=== PATIENT | female | born 1950 | race Caucasian/White ===

== ENCOUNTER 2019-05-05 15:57 | Inpatient (IN) | payer BC, OTHER ==
[~2019-05-05] VITALS: Ht 162.6 cm; Wt 61.6 kg
[2019-05-05] MEDS ORDERED: HYDROmorphone 1 MG/ML, 1ML INJ ONE ×5 (16:09→20:54)
[2019-05-05] MEDS ORDERED: ONDANSETRON 2MG/ML, 2ML ONE ×2 (16:09→18:44)
[2019-05-05] MEDS: HYDROmorphone 2 MG/ML, 1ML IVPush PRN ×8 (16:15→21:05)
--- NOTE | 2019-05-05 16:15 | NUR ---
PT PLACED ON BP CUFF, PULSE OX. DILAUDID 1MG GIVEN PER ERP ORDER FOR SEVERE, DIFFUSE "TWISTING" ABDOMINAL PAIN RATED 10/10. ZOFRAN PROVIDED WELL FOR NAUSEA. PT LAST ATE LAST NIGHT, "HOT DOG". R/O NORMAL BMS WITH LAST ONE THIS AM. WARM BLANKET AND CALL LIGHT PROVIDED.
[2019-05-05] MEDS ORDERED: PLEASE ENTER ALLERGIES MC SCH (16:30)
[2019-05-05] MEDS ORDERED: SODIUM CHLORIDE FLUSH 10ML SYR IVF ONE (16:30)
[2019-05-05] MEDS ORDERED: ONDANSETRON 2MG/ML, 2ML IVPush ONE (16:30)
[2019-05-05] MEDS ORDERED: PLEASE ENTER HEIGHT AND WEIGHT MC SCH (16:30)
[2019-05-05] MEDS ORDERED: SODIUM CHLORIDE 0.9% 1,000ML IVBOLUS ONE (16:30)
[2019-05-05 16:51] LABS: INTERNATIONAL NORMALIZED RATIO 1.01 (0.93-1.1); PROTHROMBIN TIME 10.7 Seconds (9.6-11.5)
[2019-05-05 16:52] LABS: ALANINE AMINOTRANSFERASE 19 U/L (12-78); ALBUMIN 3.7 g/dL (3.4-5.0); ANION GAP 6 mmol/L (5-15); CALCIUM 9.7 mg/dL (8.5-10.1); CHLORIDE 103 mmol/L (98-107); CREATININE 1.08 mg/dL (0.55-1.02)
[2019-05-05 16:54] LABS: ALKALINE PHOSPHATASE 61 U/L (45-117); BILIRUBIN,TOTAL 1.1 mg/dL (0.2-1.0); TOTAL PROTEIN 6.7 g/dL (6.4-8.2)
[2019-05-05 16:55] LABS: BASOPHILS # (AUTO) 0.01 x10^3/uL (0-0.1); BASOPHILS % (AUTO) 0 % (0-1); EOSINOPHILS # (AUTO) 0.01 x10^3/uL (0-0.4); EOSINOPHILS % (AUTO) 0 % (1-7); LYMPHOCYTES # (AUTO) 0.87 x10^3/uL (1-3.4); LYMPHOCYTES % (AUTO) 18 % (22-44); MD NO; MEAN CORPUSCULAR HEMOGLOBIN 29.7 pg (27.0-34.8); MEAN CORPUSCULAR HGB CONC 32.7 g/dL (32.4-35.8); MEAN CORPUSCULAR VOLUME 90.8 fL (80-100); MEAN PLATELET VOLUME 7.3 fL (7.4-10.4); MONOCYTES # (AUTO) 0.23 x10^3/uL (0.2-0.8); MONOCYTES % (AUTO) 5 % (2-9); NEUTROPHILS # (AUTO) 3.73 x10^3/uL (1.8-6.8); NEUTROPHILS % (AUTO) 77 % (42-75); PLATELET COUNT 288 x10^3/uL (130-400); RED BLOOD COUNT 4.84 x10^6/uL (3.82-5.3); RED CELL DISTRIBUTION WIDTH 15.1 % (9.6-15.2)
--- NOTE | 2019-05-05 16:55 | NUR ---
2ND DOSE OF DILAUDID GIVEN FOR PERSISTENT PAIN, RATED 8/10. VSS/UPDATED IN COMPUTER. CALL LIGHT WITHIN REACH.
--- NOTE | 2019-05-05 17:12 | NUR ---
OXYGEN PLACED AT 2LITERS FOR SAT DIPPING TO 88% ON RA. MANUEL WARMER PLACED. FAMILY AT BS.
[2019-05-05] MEDS ORDERED: OMNIPAQUE 350 MG/ML, 100ML BOTTLE ONE (17:43)
[2019-05-05] MEDS ORDERED: METRONIDAZOLE PMX 500MG/100ML 100 ML IV ONE (18:30)
[2019-05-05] MEDS ORDERED: PIPERACILLIN/TAZO/PMX 3.375GM 50 ML IV ONE (18:30)
[2019-05-05] MEDS ORDERED: PROPOFOL 50 ML ONE (18:37)
--- NOTE | 2019-05-05 18:37 | NUR ---
PT UNDRESSED/PLACED ON GOWN, CLOTHING PLACED IN BELONGING BAG. WHO FORM STARTED. REPORT TO SUSAN IN OR. PT TO BE TAKEN TO OR IMMEDIATELY.
[2019-05-05] MEDS ORDERED: MIDAZOLAM 1 MG/ML, 2ML ONE (18:38)
[2019-05-05] MEDS ORDERED: FENTANYL PF 250 MCG/5ML ONE (18:38)
[2019-05-05] MEDS ORDERED: ROCURONIUM 10MG/ML,5ML ONE (18:41)
[2019-05-05] MEDS ORDERED: SUCCINYLCHOLINE 20 MG/ML, 10ML ONE (18:41)
[2019-05-05] MEDS ORDERED: DEXAMETHASONE 4 MG/ML, 1ML ONE (18:44)
[2019-05-05] MEDS ORDERED: ATOR40TA78 PO (19:00)
[2019-05-05] MEDS ORDERED: LEVO100T5 PO (19:00)
[2019-05-05] MEDS ORDERED: CEFOTETAN PMX 1GM/50ML 50 ML ONE (19:10)
[2019-05-05] MEDS ORDERED: EPHEDRINE 50 MG/ML, 1ML IM PRN (19:30)
[2019-05-05] MEDS ORDERED: MIDAZOLAM 1 MG/ML, 2ML IV PRN (19:30)
[2019-05-05] MEDS ORDERED: MORPHINE SULFATE 4 MG/ML, 1ML IVPush PRN ×3 (19:30→22:30)
[2019-05-05] MEDS ORDERED: OXYcodone 5 MG/5 ML ORAL.SOL UDC PO PRN (19:30)
[2019-05-05] MEDS ORDERED: ONDANSETRON ODT 8 MG PO PRN (19:30)
[2019-05-05] MEDS ORDERED: EPHEDRINE 50 MG/ML, 1ML IVPush PRN (19:30)
[2019-05-05] MEDS ORDERED: PROMETHAZINE 25 MG/ML, 1ML IV PRN (19:30)
[2019-05-05] MEDS ORDERED: DIPHENHYDRAMINE 50 MG/ML, 1ML IVPush PRN ×2 (19:30→22:30)
[2019-05-05] MEDS ORDERED: DIAZEPAM 5 MG/ML, 2ML IVPush PRN (19:30)
[2019-05-05] MEDS ORDERED: ONDANSETRON 2MG/ML, 2ML IV PRN ×2 (19:30→22:30)
[2019-05-05] MEDS ORDERED: FENTANYL PF 100 MCG/2ML ONE (20:17)
[2019-05-05] MEDS: FENTANYL PF 100 MCG/2ML IV PRN ×2 (20:18→20:23)
[2019-05-05] MEDS ORDERED: DIAZEPAM 5 MG/ML, 2ML ONE (20:43)
[2019-05-05] MEDS ORDERED: CALCIUM CARBONATE 500 MG TAB.CHEW PO PRN (22:30)
[2019-05-05] MEDS ORDERED: LORazepam 2 MG/ML, 1ML IVPush PRN (22:30)
[2019-05-05] MEDS ORDERED: SCOPOLAMINE PATCH, 1.5MG PATCH.TD72 TD PRN (22:30)
[2019-05-05] MEDS ORDERED: TRAZODONE 50MG TABLET PO PRN (22:30)
[2019-05-05] MEDS ORDERED: LORazepam 1MG TABLET PO PRN (22:30)
[2019-05-05] MEDS ORDERED: DEXAMETHASONE 4 MG/ML, 1ML IVPush PRN (22:30)
[2019-05-05] MEDS ORDERED: HALOPERIDOL 5 MG/ML IVPush PRN (22:30)
[2019-05-05] MEDS ORDERED: DIPHENHYDRAMINE 25 MG CAPSULE PO PRN (22:30)
[2019-05-05] MEDS: NICOTINE 21 MG/24 HR PATCH.TD24 TD SCH (22:30)
[2019-05-05] MEDS: ACETAMINOPHEN 500 MG TABLET PO SCH (22:30)
[2019-05-06 01:29] VITALS: BP 94/61
[2019-05-06] MEDS: LACTATED RINGERS 1,000 ML IV SCH ×3 (02:35→21:13)
[2019-05-06 03:52] LABS: MEAN CORPUSCULAR HEMOGLOBIN 29.9 pg (27.0-34.8); MEAN CORPUSCULAR HGB CONC 33.1 g/dL (32.4-35.8); MEAN CORPUSCULAR VOLUME 90.5 fL (80-100); MEAN PLATELET VOLUME 7.5 fL (7.4-10.4); PLATELET COUNT 213 x10^3/uL (130-400); RED BLOOD COUNT 4.23 x10^6/uL (3.82-5.3); RED CELL DISTRIBUTION WIDTH 15.1 % (9.6-15.2)
[2019-05-06 03:58] LABS: ANION GAP 4 mmol/L (5-15); CALCIUM 8.6 mg/dL (8.5-10.1); CHLORIDE 106 mmol/L (98-107); CREATININE 0.93 mg/dL (0.55-1.02)
[2019-05-06 04:14] LABS: MD YES
[2019-05-06 04:16] LABS: <PLATELET ESTIMATE> ADEQUATE; <PLT MORPHOLOGY> NORMAL PLT MORPH; ANISOCYTOSIS 1+; BAND#(MANUAL) 1.04 x10^3/uL; BANDS%(MANUAL) 13 % (0-7); LYMPHS% (MANUAL) 10 % (22-44); MONOS#(MANUAL) 0.16 x10^3/uL (0.3-2.7); MONOS% (MANUAL) 2 % (2-9); SEGS% (MANUAL) 75 % (42-75)
[2019-05-06] MEDS: ACETAMINOPHEN 500 MG TABLET PO SCH ×4 (04:30→22:30)
[2019-05-06] MEDS: PIPERACILLIN/TAZO/PMX 3.375GM 50 ML IV SCH ×5 (05:16→23:32)
[2019-05-06 06:52] VITALS: BP 114/64
[2019-05-06] MEDS: ENOXAPARIN 40 MG/0.4 ML SQ SCH (08:25)
[2019-05-06] MEDS: PANTOPRAZOLE 40 MG IV IVPush SCH (08:25)
[2019-05-06 13:37] VITALS: BP 109/64
[2019-05-06] MEDS ORDERED: LACTATED RINGERS 1,000 ML IVBOLUS ONE (14:00)
[2019-05-06 18:41] VITALS: BP 122/62
[2019-05-06] MEDS: NICOTINE 21 MG/24 HR PATCH.TD24 TD SCH (22:30)
[2019-05-07 02:28] VITALS: BP 133/66
[2019-05-07 03:35] LABS: BASOPHILS # (AUTO) 0.01 x10^3/uL (0-0.1); BASOPHILS % (AUTO) 0 % (0-1); EOSINOPHILS # (AUTO) 0.02 x10^3/uL (0-0.4); EOSINOPHILS % (AUTO) 0 % (1-7); LYMPHOCYTES # (AUTO) 0.89 x10^3/uL (1-3.4); LYMPHOCYTES % (AUTO) 11 % (22-44); MD NO; MEAN CORPUSCULAR HEMOGLOBIN 30.2 pg (27.0-34.8); MEAN CORPUSCULAR HGB CONC 33.6 g/dL (32.4-35.8); MEAN PLATELET VOLUME 7.3 fL (7.4-10.4); MONOCYTES % (AUTO) 7 % (2-9); NEUTROPHILS # (AUTO) 6.98 x10^3/uL (1.8-6.8); NEUTROPHILS % (AUTO) 82 % (42-75); PLATELET COUNT 201 x10^3/uL (130-400); RED BLOOD COUNT 3.76 x10^6/uL (3.82-5.3); RED CELL DISTRIBUTION WIDTH 15.3 % (9.6-15.2)
[2019-05-07 03:43] LABS: ALBUMIN 2.3 g/dL (3.4-5.0); ANION GAP 3 mmol/L (5-15); CALCIUM 8.6 mg/dL (8.5-10.1); CHLORIDE 105 mmol/L (98-107); CREATININE 0.81 mg/dL (0.55-1.02)
[2019-05-07] MEDS: ACETAMINOPHEN 500 MG TABLET PO SCH ×4 (04:30→23:26)
[2019-05-07] MEDS: PIPERACILLIN/TAZO/PMX 3.375GM 50 ML IV SCH ×4 (05:29→23:26)
[2019-05-07] MEDS: LACTATED RINGERS 1,000 ML IV SCH ×3 (05:29→21:00)
[2019-05-07 05:40] LABS: BASOPHILS # (AUTO) 0.01 x10^3/uL (0-0.1); BASOPHILS % (AUTO) 0 % (0-1); EOSINOPHILS # (AUTO) 0.02 x10^3/uL (0-0.4); EOSINOPHILS % (AUTO) 0 % (1-7); LYMPHOCYTES # (AUTO) 0.94 x10^3/uL (1-3.4); LYMPHOCYTES % (AUTO) 10 % (22-44); MD NO; MEAN CORPUSCULAR HEMOGLOBIN 30.4 pg (27.0-34.8); MEAN CORPUSCULAR HGB CONC 33.5 g/dL (32.4-35.8); MEAN CORPUSCULAR VOLUME 90.7 fL (80-100); MEAN PLATELET VOLUME 7.4 fL (7.4-10.4); MONOCYTES # (AUTO) 0.69 x10^3/uL (0.2-0.8); MONOCYTES % (AUTO) 8 % (2-9); NEUTROPHILS # (AUTO) 7.64 x10^3/uL (1.8-6.8); NEUTROPHILS % (AUTO) 82 % (42-75); PLATELET COUNT 204 x10^3/uL (130-400); RED BLOOD COUNT 3.75 x10^6/uL (3.82-5.3); RED CELL DISTRIBUTION WIDTH 15.2 % (9.6-15.2)
[2019-05-07 07:05] VITALS: BP 136/77
[2019-05-07] MEDS: ENOXAPARIN 40 MG/0.4 ML SQ SCH (08:51)
[2019-05-07] MEDS: PANTOPRAZOLE 40 MG IV IVPush SCH (08:51)
[2019-05-07] MEDS: D5%-0.45NACL+KCL 20MEQ 1,000 ML IV SCH ×2 (08:52→23:27)
[2019-05-07] MEDS ORDERED: OMNIPAQUE 350 MG/ML, 150 ML BOTTLE ONE (11:28)
[2019-05-07 13:45] VITALS: BP 139/74
[2019-05-07 19:34] VITALS: BP 132/73
[2019-05-07] MEDS: NICOTINE 21 MG/24 HR PATCH.TD24 TD SCH (22:30)
[2019-05-08 01:05] VITALS: BP 105/67
[2019-05-08] MEDS: LACTATED RINGERS 1,000 ML IV SCH (05:00)
[2019-05-08] MEDS: PIPERACILLIN/TAZO/PMX 3.375GM 50 ML IV SCH ×4 (05:55→23:06)
[2019-05-08] MEDS: ACETAMINOPHEN 500 MG TABLET PO SCH ×4 (05:55→23:06)
[2019-05-08 05:57] LABS: ALBUMIN 2.1 g/dL (3.4-5.0); CALCIUM 8.4 mg/dL (8.5-10.1); CHLORIDE 106 mmol/L (98-107)
[2019-05-08 06:00] LABS: ANION GAP 4 mmol/L (5-15); BASOPHILS # (AUTO) 0.01 x10^3/uL (0-0.1); BASOPHILS % (AUTO) 0 % (0-1); CREATININE 0.67 mg/dL (0.55-1.02); EOSINOPHILS # (AUTO) 0.15 x10^3/uL (0-0.4); EOSINOPHILS % (AUTO) 2 % (1-7); LYMPHOCYTES # (AUTO) 1.09 x10^3/uL (1-3.4); LYMPHOCYTES % (AUTO) 15 % (22-44); MD NO; MEAN CORPUSCULAR HEMOGLOBIN 30.1 pg (27.0-34.8); MEAN CORPUSCULAR HGB CONC 33.5 g/dL (32.4-35.8); MEAN CORPUSCULAR VOLUME 89.8 fL (80-100); MEAN PLATELET VOLUME 7.8 fL (7.4-10.4); MONOCYTES # (AUTO) 0.42 x10^3/uL (0.2-0.8); MONOCYTES % (AUTO) 6 % (2-9); NEUTROPHILS # (AUTO) 5.78 x10^3/uL (1.8-6.8); NEUTROPHILS % (AUTO) 78 % (42-75); PLATELET COUNT 198 x10^3/uL (130-400); RED BLOOD COUNT 3.49 x10^6/uL (3.82-5.3); RED CELL DISTRIBUTION WIDTH 15.2 % (9.6-15.2)
[2019-05-08 06:35] VITALS: BP 137/77
[2019-05-08] MEDS: PANTOPRAZOLE 40 MG IV IVPush SCH (09:39)
[2019-05-08] MEDS: ENOXAPARIN 40 MG/0.4 ML SQ SCH (09:39)
[2019-05-08] MEDS: LEVOTHYROXINE 100 MCG TABLET PO SCH (12:17)
[2019-05-08 13:20] VITALS: BP 136/78
[2019-05-08 19:56] VITALS: BP 128/72
[2019-05-08] MEDS: ATORVASTATIN 40 MG TABLET PO SCH (20:43)
[2019-05-08] MEDS: NICOTINE 21 MG/24 HR PATCH.TD24 TD SCH (20:44)
[2019-05-08] MEDS: D5%-0.45NACL+KCL 20MEQ 1,000 ML IV SCH (23:21)
[2019-05-09 00:31] VITALS: BP 137/74
[2019-05-09 05:02] LABS: BASOPHILS # (AUTO) 0.01 x10^3/uL (0-0.1); BASOPHILS % (AUTO) 0 % (0-1); EOSINOPHILS # (AUTO) 0.34 x10^3/uL (0-0.4); EOSINOPHILS % (AUTO) 5 % (1-7); LYMPHOCYTES # (AUTO) 0.83 x10^3/uL (1-3.4); LYMPHOCYTES % (AUTO) 13 % (22-44); MD NO; MEAN CORPUSCULAR HEMOGLOBIN 30.2 pg (27.0-34.8); MEAN CORPUSCULAR HGB CONC 33.6 g/dL (32.4-35.8); MEAN CORPUSCULAR VOLUME 89.8 fL (80-100); MEAN PLATELET VOLUME 7.3 fL (7.4-10.4); MONOCYTES # (AUTO) 0.49 x10^3/uL (0.2-0.8); MONOCYTES % (AUTO) 7 % (2-9); NEUTROPHILS # (AUTO) 4.95 x10^3/uL (1.8-6.8); NEUTROPHILS % (AUTO) 75 % (42-75); PLATELET COUNT 228 x10^3/uL (130-400); RED BLOOD COUNT 3.65 x10^6/uL (3.82-5.3); RED CELL DISTRIBUTION WIDTH 15.1 % (9.6-15.2)
[2019-05-09 05:05] LABS: ANION GAP 4 mmol/L (5-15); CHLORIDE 108 mmol/L (98-107); CREATININE 0.67 mg/dL (0.55-1.02)
[2019-05-09] MEDS: PIPERACILLIN/TAZO/PMX 3.375GM 50 ML IV SCH (05:34)
[2019-05-09] MEDS: ACETAMINOPHEN 500 MG TABLET PO SCH ×4 (05:34→23:37)
[2019-05-09] MEDS ORDERED: LEVOTHYROXINE 100 MCG TABLET PO SCH (06:00)
[2019-05-09] MEDS: LEVOTHYROXINE 100 MCG TABLET PO SCH (07:56)
[2019-05-09 08:10] VITALS: BP 151/80
[2019-05-09 08:15] VITALS: BP 150/74
[2019-05-09] MEDS: ENOXAPARIN 40 MG/0.4 ML SQ SCH (09:36)
[2019-05-09] MEDS: PANTOPRAZOLE 40 MG IV IVPush SCH (09:39)
[2019-05-09] MEDS: AMOXICILLIN/CLAV 500-125MG TABLET PO SCH ×2 (11:45→20:24)
[2019-05-09 14:30] VITALS: BP 139/79
[2019-05-09] MEDS: OXYcodone/APAP 5/325MG TABLET PO PRN (19:01)
[2019-05-09 20:19] VITALS: BP 151/80
[2019-05-09] MEDS: ATORVASTATIN 40 MG TABLET PO SCH (20:24)
[2019-05-09] MEDS: SODIUM CHLORIDE FLUSH 10ML SYR IVF SCH (20:25)
[2019-05-09] MEDS: NICOTINE 21 MG/24 HR PATCH.TD24 TD SCH (20:27)
[2019-05-10 02:11] VITALS: BP 150/79
[2019-05-10] MEDS: ACETAMINOPHEN 500 MG TABLET PO SCH ×2 (04:57→11:03)
[2019-05-10] MEDS ORDERED: OMEPRAZOLE 20 MG CAPSULE.DR PO SCH (06:00)
[2019-05-10 06:39] VITALS: BP 159/85
[2019-05-10] MEDS: LEVOTHYROXINE 100 MCG TABLET PO SCH (07:50)
[2019-05-10] MEDS: OXYcodone/APAP 5/325MG TABLET PO PRN ×2 (07:50→11:03)
[2019-05-10] MEDS: AMOXICILLIN/CLAV 500-125MG TABLET PO SCH (08:57)
[2019-05-10] MEDS: ENOXAPARIN 40 MG/0.4 ML SQ SCH (08:57)
[2019-05-10] MEDS: SODIUM CHLORIDE FLUSH 10ML SYR IVF SCH (08:58)
[2019-05-10] MEDS ORDERED: OMEP-110 PO (11:10)
[2019-05-10] MEDS ORDERED: OXYC-302 PO (11:13)
[2019-05-10] MEDS ORDERED: AMOX1TAB64 PO (11:13)
== END 2019-05-10 11:36 | disposition home or self-care (01) | DRG 329 ==
LOC: ED 18:13 → 4NE 21:45 → ED 22:00 → 4NE 22:10 → DCLOUNGE 05-10 11:24
PROVIDERS: ADMIT Colon & Rectal Surgery; ATTEND Colon & Rectal Surgery
PROC: 0DU907Z Supplement Duodenum with Autologous Tissue Substitute, Open Approach (ICD-10-PCS; principal; 2019-05-05 19:00)
DX: K26.5 Chronic or unspecified duodenal ulcer with perforation (principal); K65.9 Peritonitis, unspecified; K25.5 Chronic or unspecified gastric ulcer with perforation; E03.9 Hypothyroidism, unspecified; E78.5 Hyperlipidemia, unspecified; F17.200 Nicotine dependence, unspecified, uncomplicated; K44.9 Diaphragmatic hernia without obstruction or gangrene; Z90.49 Acquired absence of other specified parts of digestive tract
CPT/HCPCS: 36415; 74177; 74240; 80048; 80053; 82040; 83605; 83690; 83735; 85025; 85610; 85730; C1729; G0378; J1100; J1170; J1650; J2250; J2270; J2405; J2543; J2704; J3010; Q9967; C1765; C9113; J0330; J3480; J3490; J7030; J7120